=== PATIENT | male | born 1980 | race Caucasian/White ===

== ENCOUNTER 2016-12-17 00:03 | Emergency (ER) | payer OTHER ==
[~2016-12-17] VITALS: Ht 175.3 cm; Wt 81.6 kg
[2016-12-17 00:15] VITALS: BP 160/90
[2016-12-17] MEDS ORDERED: CARTIA XT120 M1 PO (00:19)
--- NOTE | 2016-12-17 00:27 | ED CARDIAC/CP/PALPITATIONS ---
History of Present Illness General Chief Complaint: Chest Pain Stated Complaint: "PER PT CP" Source: patient Exam Limitations: no limitations Vital Signs & Intake/Output Vital Signs & Intake/Output Vital Signs Date Time Temp Pulse Resp B/P B/P Pulse O2 O2 Flow FiO2 Mean Ox Delivery Rate 12/17 0019 98 Room Air Room Air 12/17 0015 98.6 69 16 160/90 98 Room Air Allergies Coded Allergies: Penicillins (Mild, RASH 12/17/16) cefaclor (From CECLOR) (Mild, RASH 12/17/16) cefuroxime (From CEFTIN) (Mild, RASH 12/17/16) morphine (Mild, SWEATS 12/18/15) Uncoded Allergies: Allergy Other NONE Med Allergies NONE Reconcile Medications Diltiazem HCl (Cartia Xt) 120 MG CAP.ER.24H 1 CAP PO DAILY HTN (Reported) Triage Note: 36YO MALE TO TRIAGE W/CO PALPITAIONS TONITE. STATES HX AF. DENIES ANY CP. PULSE AT TRIAGE = 68 Triage Nurses Notes Reviewed? yes Onset: Abrupt Duration: minute(s):, gone now Timing: recent history Quality/Severity: mild, moderate Location: central Radiation: no radiation Activities at Onset: none Prior Chest Pain/Card Workup: evaluated by dr. stroud, negative work up thus far. Modifying Factors: Improves With: rest. HPI: 36 yo gentleman w/ a history of paroxysmal afib, intermittent chest pain x 1 year, s/p negative evaluation, also w/ history of intermittent distal extremity numbness, presents with a recurrence of his distal extremity numbness. He notes, "I was feeling numbness and tingling in my arms and legs, and then I felt a pounding in my heart, like heavy beats... and then it got better on its own after a few minutes." No radiating pain, dyspnea, syncopal symptoms, dizziness. He is presently feeling better. He notes that he saw a neurologist this week, "who told me everything was okay. " Past History Travel History Traveled to [place] past 21 day No Medical History Any Pertinent Medical History? see below for history Cardiovascular: hypertension, paroxysmal afib Gastrointestinal: GERD Surgical History Surgical History: non-contributory Psychosocial History What is your primary language Cymro Tobacco Use: Quit >30 days ago Review of Systems Review of Systems Constitutional: Reports: no symptoms. EENTM: Reports: no symptoms. Respiratory: Reports: no symptoms. Cardiovascular: Reports: no symptoms. GI: Reports: no symptoms. Genitourinary: Reports: no symptoms. Musculoskeletal: Reports: no symptoms. Skin: Reports: no symptoms. Neurological/Psychological: Reports: no symptoms. Hematologic/Endocrine: Reports: no symptoms. Immunologic/Allergic: Reports: no symptoms. All Other Systems: Reviewed and Negative Physical Exam Physical Exam General Appearance: well developed/nourished, mild distress Head: atraumatic, normal appearance Eyes: Bilateral: normal appearance. Ears, Nose, Throat: normal pharynx, normal ENT inspection Neck: normal inspection, supple, full range of motion Respiratory: normal breath sounds, chest non-tender, no respiratory distress, quiet respiration, lungs clear Cardiovascular: regular rate/rhythm Gastrointestinal: normal bowel sounds, soft, non-tender Back: normal inspection Extremities: normal inspection, normal capillary refill, normal range of motion, no edema Neurologic/Psych: no motor/sensory deficits, awake, alert, oriented x 3 Skin: intact, normal color, warm/dry Progress Differential Diagnosis: hyperventilation, paroxysmal afib, panic attack, i doubt mi vs other. Plan of Care: Orders Procedure Date/time Status EKG 12/17 6 Active Laboratory Tests 12/17/1636: Sodium Cancelled, Potassium Cancelled, Chloride Cancelled, Carbon Dioxide Cancelled, Anion Gap Cancelled, BUN Cancelled, Creatinine Cancelled, Estimated GFR Cancelled, BUN/Creatinine Ratio Cancelled, Glucose Cancelled, Calcium Cancelled, Total Bilirubin Cancelled, AST Cancelled, ALT Cancelled, Alkaline Phosphatase Cancelled, Troponin I Cancelled, Total Protein Cancelled, Albumin Cancelled, Globulin Cancelled, Albumin/Globulin Ratio Cancelled, CBC w Diff Cancelled, WBC Cancelled, RBC Cancelled, Hgb Cancelled, Hct Cancelled, MCV Cancelled, MCH Cancelled, RDW Cancelled, Plt Count Cancelled, MPV Cancelled, Gran % Cancelled, Lymphocytes % Cancelled, Monocytes % Cancelled, Eosinophils % Cancelled, Basophils % Cancelled, Absolute Granulocytes Cancelled, Absolute Lymphocytes Cancelled, Absolute Monocytes Cancelled, Absolute Eosinophils Cancelled, Absolute Basophils Cancelled, PUBS MCHC Cancelled Diagnostic Imaging: Viewed by Me: Radiology Read. Discussed w/RAD: Radiology Read. Initial ED EKG: normal axis, normal intervals, normal p-waves, normal QRS complex, normal sinus rhythm Departure Departure Disposition: HOME OR SELF CARE Condition: Stable Clinical Impression Primary Impression: Numbness and tingling Secondary Impressions: Palpitations Referrals: UNKNOWN (PCP/Family) Departure Forms: Customer Survey General Discharge Information General Discharge Information
== END 2016-12-17 00:40 | disposition admitted as inpatient to this hospital (09) ==
LOC: ERH 00:03
DX: R00.2 Palpitations (principal)
CPT/HCPCS: 93005; 93010; 99281